=== PATIENT | male | born 1990 | race Caucasian/White ===

== ENCOUNTER 2018-06-05 21:41 | Emergency (ER) | payer SELFPAY ==
[~2018-06-05] VITALS: Ht 172.7 cm; Wt 79.4 kg
[2018-06-05 21:50] VITALS: BP_SYST 139
[2018-06-05] MEDS ORDERED: KETOROLAC TROMETHAMINE 60 MG/2 ML VIAL IM ONE (22:45)
[2018-06-05 23:11] VITALS: BP_SYST 128
== END 2018-06-05 23:11 | disposition home or self-care (01) ==
LOC: SED 21:41
DX: S60.212A Contusion of left wrist, initial encounter (principal); S60.211A Contusion of right wrist, initial encounter; F17.210 Nicotine dependence, cigarettes, uncomplicated; V89.9XXA Person injured in unspecified vehicle accident, initial encounter; Y93.55 Activity, bike riding; Y92.410 Unspecified street and highway as the place of occurrence of the external cause; Y99.8 Other external cause status
CPT/HCPCS: 96372; 99283; J1885

== ENCOUNTER 2018-12-05 20:58 | Emergency (ER) | payer MEDICAID ==
[~2018-12-05] VITALS: Ht 172.7 cm; Wt 81.6 kg
[2018-12-05 21:08] VITALS: BP_SYST 140
--- NOTE | 2018-12-05 21:14 | NUR ---
Patient triaged and placed in waiting room. VSS and patient appears in no acute distress at this time. Accompanied by self, awaiting available bed, and MD notified of need for MSE.
--- NOTE | 2018-12-06 00:25 | NUR ---
Patient to ER Chair 1 for evaluation.
--- NOTE | 2018-12-06 00:30 | NUR ---
Patient to ER via triage for evaluation of left 5th finger x 1 week, patient also reports drainage from finger. Patient is awake, alert and oriented in no acute distress, vital signs stable, respirations even and unlabored, skin warm and dry to touch. Awaiting evaluation by ER MD, will continue to observe and assess.
--- NOTE | 2018-12-06 01:50 | NUR ---
ER at bedside examining patient.
[2018-12-06] MEDS ORDERED: KETOROLAC TROMETHAMINE 60 MG/2 ML VIAL IM ONE (02:00)
[2018-12-06] MEDS ORDERED: cefTRIAXone 1 GM VIAL IM ONE (02:00)
[2018-12-06 02:27] LABS: HEMATOCRIT 42.9 % (36-54); HEMOGLOBIN 14.9 g/dL (14.0-18.0); MEAN CORPUSCULAR HEMOGLOBIN 32 pg (27-31); MEAN CORPUSCULAR HGB CONC 35 % (32-36); MEAN CORPUSCULAR VOLUME 92 fL (79.0-98.0); PLATELET COUNT (AUTO) 360 K/uL (130-430); RED BLOOD CELL COUNT(AUTO) 4.67 MIL/uL (4.2-6.2); RED CELL DISTRIBUTION WIDTH 13.2 % (9.0-15.0); WHITE BLOOD COUNT (AUTO) 10.5 K/uL (4.8-10.8)
[2018-12-06 02:28] LABS: BASOPHILS # (AUTO) 0.1 K/uL (0.0-0.2); BASOPHILS % (AUTO) 0.7 % (0.0-2.0); EOSINOPHILS # (AUTO) 0.3 K/uL (0.0-0.4); EOSINOPHILS % (AUTO) 2.5 % (0.0-4.0); LYMPHOCYTES # (AUTO) 3.7 K/uL (1.0-5.5); LYMPHOCYTES % (AUTO) 34.8 % (20.5-51.5); MONOCYTES % (AUTO) 9.1 % (1.7-9.3); NEUTROPHILS # (AUTO) 5.6 K/uL (1.8-7.7); NEUTROPHILS % (AUTO) 52.9 % (40.0-70.0)
[2018-12-06 02:35] LABS: CALCIUM 8.5 mg/dL (8.4-11.0); CREATININE 0.72 mg/dL (0.55-1.30); POTASSIUM 3.5 mmol/L (3.5-5.1)
[2018-12-06 02:39] LABS: ALBUMIN 3.5 g/dL (3.4-4.8); C-REACTIVE PROTEIN QUANT 1.4 mg/dL (0-0.5); TOTAL BILIRUBIN 0.2 mg/dL (0.0-1.0)
--- NOTE | 2018-12-06 02:50 | NUR ---
Patient resting quietly in no acute distress, patient sleeping at this time. Awakens easily to verbal stimuli. Awaiting results and dispo.
[2018-12-06 03:40] VITALS: BP_SYST 140
--- NOTE | 2018-12-06 03:40 | NUR ---
Patient given written and verbal discharge instructions and verbalizes understanding. ER MD Dr. Shaikh discussed with patient the results and treatment provided. Patient in stable condition. ID arm band removed. Rx of Keflex and ibuprofen given. Patient educated on pain management and to follow up with PMD within 2-3 days. Pain Scale 2/10, however, pt able to walk with steady gait and no acute distress. RX of pain medication. Opportunity for questions provided and answered. Medication side effect fact sheet provided.
[2018-12-06 04:16] LABS: ERYTHROCYTE SEDIMENTATION RATE 11 MM/HR (0-15)
== END 2018-12-06 03:40 | disposition home or self-care (01) ==
LOC: SED 20:58
DX: S62.307A Unspecified fracture of fifth metacarpal bone, left hand, initial encounter for closed fracture (principal); R03.0 Elevated blood-pressure reading, without diagnosis of hypertension; L03.114 Cellulitis of left upper limb; W19.XXXA Unspecified fall, initial encounter; Y93.89 Activity, other specified; Y92.89 Other specified places as the place of occurrence of the external cause; Y99.8 Other external cause status
CPT/HCPCS: 36415; 73130; 80053; 85025; 85651; 86140; 96372; 99284; J0696; J1885

== ENCOUNTER 2019-01-06 11:34 | Emergency (ER) | payer MEDICAID ==
[~2019-01-06] VITALS: Ht 175.3 cm; Wt 90.7 kg
--- NOTE | 2019-01-06 11:34 | NUR ---
Placed in room 06 . Placed on environmental monitoring specialist, blood pressure machine and pulse oximeter. To gown for exam. Side rails up.
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
[2019-01-06 11:36] VITALS: BP_SYST 155
[2019-01-06] MEDS ORDERED: NACL 0.9% 1,000 ML IV ONE (11:40)
--- NOTE | 2019-01-06 11:41 | NUR ---
ER Dr. Apple at bedside examining patient.
[2019-01-06] MEDS ORDERED: BACITRACIN 1 GM OINT TP ONE (11:45)
[2019-01-06] MEDS ORDERED: DIPH-TET-PERTUS Vaccine 0.5 ML VIAL (ADACEL) IM ONE (11:45)
[2019-01-06] MEDS ORDERED: KETOROLAC TROMETHAMINE 30 MG VIAL IVP ONE (11:45)
[2019-01-06] MEDS ORDERED: LIDOCAINE 1% 10 MG/ML, 20 ML MDV IJ ONE (11:45)
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
--- NOTE | 2019-01-06 12:06 | NUR ---
Pt taken to radiology via gurney in stable condition.
[2019-01-06 12:14] LABS: BASOPHILS # (AUTO) 0.1 K/uL (0.0-0.2); BASOPHILS % (AUTO) 0.7 % (0.0-2.0); EOSINOPHILS # (AUTO) 0.2 K/uL (0.0-0.4); EOSINOPHILS % (AUTO) 2.1 % (0.0-4.0); HEMATOCRIT 45.8 % (36-54); HEMOGLOBIN 15.5 g/dL (14.0-18.0); LYMPHOCYTES # (AUTO) 3.1 K/uL (1.0-5.5); LYMPHOCYTES % (AUTO) 39.7 % (20.5-51.5); MEAN CORPUSCULAR HEMOGLOBIN 31 pg (27-31); MEAN CORPUSCULAR HGB CONC 34 % (32-36); MEAN CORPUSCULAR VOLUME 93 fL (79.0-98.0); MONOCYTES # (AUTO) 0.8 K/uL (0.0-1.0); MONOCYTES % (AUTO) 10.3 % (1.7-9.3); NEUTROPHILS # (AUTO) 3.6 K/uL (1.8-7.7); NEUTROPHILS % (AUTO) 47.2 % (40.0-70.0); PLATELET COUNT (AUTO) 300 K/uL (130-430); RED BLOOD CELL COUNT(AUTO) 4.94 MIL/uL (4.2-6.2); RED CELL DISTRIBUTION WIDTH 13.7 % (9.0-15.0); WHITE BLOOD COUNT (AUTO) 7.7 K/uL (4.8-10.8)
[2019-01-06 12:23] LABS: ANION GAP 9 (5-15); CALCIUM 8.8 mg/dL (8.4-11.0); CHLORIDE 102 mmol/L (98-107); CREATININE 0.86 mg/dL (0.55-1.30); GLUCOSE 108 mg/dL (70-99); POTASSIUM 3.9 mmol/L (3.5-5.1); SODIUM SERUM 138 mmol/L (136-145); UREA NITROGEN, BLOOD 12 mg/dL (8-21)
[2019-01-06 12:24] LABS: GFR AFRICAN AMERICAN 134 mL/min (>90)
[2019-01-06 12:29] LABS: ALANINE AMINOTRANSFERASE 23 U/L (12-78); ALBUMIN 3.9 g/dL (3.4-4.8); AMYLASE 25 U/L (0-100); ASPARTATE AMINOTRANSFERASE 11 U/L (10-37); LIPASE 115 U/L (73-393); TOTAL BILIRUBIN 0.3 mg/dL (0.0-1.0)
[2019-01-06 12:33] LABS: ALCOHOL, BLOOD < 3 mg/dL (<10)
--- NOTE | 2019-01-06 13:00 | NUR ---
Medicated per MD orders. IVF infusing with no s/s of infiltration at this time. Will cont to monitor
[2019-01-06 13:24] LABS: BILIRUBIN,URINE NEGATIVE (NEGATIVE); CLARITY/URINE HAZY (CLEAR); COLOR,URINE YELLOW (YELLOW); GLUCOSE,URINE NEGATIVE (NEGATIVE); KETONES,URINE NEGATIVE (NEGATIVE); LEUKOCYTE ESTERASE ,URINE TRACE (NEGATIVE); NITRITE, URINE NEGATIVE (NEGATIVE); PH,URINE 7.5 (5.0-8.0); PROTEIN URINE 1+ (NEGATIVE)
[2019-01-06 13:27] LABS: BLOOD, URINE TRACE (NEGATIVE)
[2019-01-06 13:34] LABS: BARBITURATE, URINE NEGATIVE (NEG <=200); BENZODIAZEPINE, URINE NEGATIVE (NEG <=150); CANNABINOID, URINE NEGATIVE (NEG <=50); COCAINE, URINE NEGATIVE (NEG <=150); METHAMPHETAMINES SCREEN,URINE NEGATIVE (NEG <=500); OPIATE, URINE NEGATIVE (NEG <=100); PHENCYCLIDINE SCREEN,URINE NEGATIVE (NEG <=25); UR TRICYCLIC ANTIDEPRESSANTS NEGATIVE (NEG <=300); URINE AMPHETAMINE POSITIVE (NEG <=500); URINE METHADONE NEGATIVE (NEG <=200); URINE OXYCODONE SCREEN NEGATIVE (NEG <=100); URINE PROPOXYPHENE SCREEN NEGATIVE (NEG <=300)
[2019-01-06 13:45] LABS: BACTERIA,URINE RARE /HPF (None Seen); URINE AMORPHOUS PHOSPHATES 3+ /HPF (None Seen)
--- NOTE | 2019-01-06 13:45 | NUR ---
Interviewed patient regarding homeless status, patient denies being homless, stating that he has temporary housing with his uncle. Offered food, clothing, referral to a homeless [facility] all of which he refused.
[2019-01-06 13:47] VITALS: BP_SYST 138
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
== END 2019-01-06 13:45 | disposition home or self-care (01) ==
LOC: SED 11:34
DX: S01.01XA Laceration without foreign body of scalp, initial encounter (principal); S16.1XXA Strain of muscle, fascia and tendon at neck level, initial encounter; S90.31XA Contusion of right foot, initial encounter; R03.0 Elevated blood-pressure reading, without diagnosis of hypertension; Z88.0 Allergy status to penicillin; V43.52XA Car driver injured in collision with other type car in traffic accident, initial encounter; Y93.89 Activity, other specified; Y92.410 Unspecified street and highway as the place of occurrence of the external cause; Y99.8 Other external cause status
CPT/HCPCS: 12002; 36415; 70450; 72125; 73630; 80053; 80307; 81000; 82150; 83690; 85025; 87086; 90715; 96374; 99284; G0482; J1885; J2001; J7030

== ENCOUNTER 2021-05-14 10:00 | Emergency (ER) | payer MEDICAID ==
[~2021-05-14] VITALS: Ht 172.7 cm; Wt 90.7 kg
[2021-05-14 10:13] VITALS: BP_SYST 143
--- NOTE | 2021-05-14 10:20 | NUR ---
Patient to H1 to gown for evaluation. Side rails up.
[2021-05-14] MEDS ORDERED: KETOROLAC TROMETHAMINE 30 MG VIAL IVP ONE (10:30)
[2021-05-14] MEDS ORDERED: NACL 0.9% 1,000 ML IV ONE (10:30)
--- NOTE | 2021-05-14 10:37 | NUR ---
PT ARRIVES FROM HOME W/ /CO L SIDED FLANK PAIN SINCE THIS AM. REPORTS 06/27, SHARP PAIN, CONSTANT
--- NOTE | 2021-05-14 10:38 | NUR ---
# 20 gauge angiocath placed to lac. Use of asceptic technique. Opsite placed over site. Blood return noted. Blood for lab drawn from site. Flushed with 10 cc of normal saline. No evidence of infiltration noted. Patient tolerated well.
--- NOTE | 2021-05-14 10:40 | NUR ---
MEDICATED W/ TORADOL PER MD ORDER
[2021-05-14 10:52] LABS: BASOPHILS # (AUTO) 0.1 K/uL (0.0-0.2); BASOPHILS % (AUTO) 0.5 % (0.0-2.0); EOSINOPHILS # (AUTO) 0.1 K/uL (0.0-0.4); EOSINOPHILS % (AUTO) 1.1 % (0.0-4.0); HEMATOCRIT 45.6 % (36-54); HEMOGLOBIN 15.9 g/dL (14.0-18.0); LYMPHOCYTES # (AUTO) 3.2 K/uL (1.0-5.5); LYMPHOCYTES % (AUTO) 25.7 % (20.5-51.5); MEAN CORPUSCULAR HEMOGLOBIN 32 pg (27-31); MEAN CORPUSCULAR HGB CONC 35 % (32-36); MEAN CORPUSCULAR VOLUME 93 fL (79.0-98.0); MONOCYTES % (AUTO) 8.5 % (1.7-9.3); NEUTROPHILS # (AUTO) 7.9 K/uL (1.8-7.7); NEUTROPHILS % (AUTO) 64.2 % (40.0-70.0); PLATELET COUNT (AUTO) 295 K/uL (130-430); RED BLOOD CELL COUNT(AUTO) 4.93 MIL/uL (4.2-6.2); RED CELL DISTRIBUTION WIDTH 13.3 % (9.0-15.0); WHITE BLOOD COUNT (AUTO) 12.4 K/uL (4.8-10.8)
[2021-05-14 11:04] LABS: CALCIUM 8.8 mg/dL (8.4-11.0); CREATININE 1.01 mg/dL (0.55-1.30); POTASSIUM 3.4 mmol/L (3.5-5.1)
[2021-05-14 11:10] LABS: ALBUMIN 4.1 g/dL (3.4-4.8); TOTAL BILIRUBIN 0.8 mg/dL (0.0-1.0)
[2021-05-14] MEDS ORDERED: HYDR-3917 PO (11:28)
[2021-05-14] MEDS ORDERED: TAMS-11 PO (11:28)
[2021-05-14] MEDS ORDERED: IBUP-1969 PO (11:28)
[2021-05-14 11:49] VITALS: BP_SYST 143
--- NOTE | 2021-05-14 11:51 | NUR ---
Patient given written and verbal discharge instructions and verbalizes understanding. ER MD discussed with patient the results and treatment provided. Patient in stable condition. ID arm band removed. IV catheter removed intact and dressing applied, no active bleeding. Rx of norco, ibuprofen, and flomax given. Patient educated on pain management and to follow up with PMD. Pain Scale 3/10. Opportunity for questions provided and answered. Medication side effect fact sheet provided.
== END 2021-05-14 11:49 | disposition home or self-care (01) ==
LOC: SED 10:00
DX: N23 Unspecified renal colic (principal); Z88.0 Allergy status to penicillin
CPT/HCPCS: 36415; 74176; 76376; 80053; 81002; 85025; 96361; 96374; 99284; J1885; J7030

== ENCOUNTER 2022-10-22 02:39 | Emergency (ER) | payer MEDICAID ==
[~2022-10-22] VITALS: Ht 172.7 cm; Wt 88.5 kg
[~2022-10-22 02:39] MED LIST: HYDR-3917 PO; IBUP-1969 PO; TAMS-11 PO
[2022-10-22 02:55] VITALS: BP_SYST 122
[2022-10-22] MEDS ORDERED: ONDANSETRON 4 MG ODT TAB PO ONE (03:30)
[2022-10-22] MEDS ORDERED: KETOROLAC TROMETHAMINE 15 MG VIAL IM ONE (03:30)
[2022-10-22 03:55] VITALS: BP_SYST 115
[2022-10-22 04:08] LABS: BASOPHILS # (AUTO) 0.1 K/uL (0.0-0.2); BASOPHILS % (AUTO) 0.6 % (0.0-2.0); EOSINOPHILS # (AUTO) 0.2 K/uL (0.0-0.4); EOSINOPHILS % (AUTO) 1.4 % (0.0-4.0); HEMATOCRIT 43.4 % (36-54); HEMOGLOBIN 15.3 g/dL (14.0-18.0); LYMPHOCYTES # (AUTO) 3.9 K/uL (1.0-5.5); LYMPHOCYTES % (AUTO) 33.5 % (20.5-51.5); MEAN CORPUSCULAR HEMOGLOBIN 32 pg (27-31); MEAN CORPUSCULAR HGB CONC 35 % (32-36); MEAN CORPUSCULAR VOLUME 90 fL (79.0-98.0); MONOCYTES # (AUTO) 1.1 K/uL (0.0-1.0); MONOCYTES % (AUTO) 9.6 % (1.7-9.3); NEUTROPHILS # (AUTO) 6.3 K/uL (1.8-7.7); NEUTROPHILS % (AUTO) 54.9 % (40.0-70.0); PLATELET COUNT (AUTO) 262 K/uL (130-430); RED BLOOD CELL COUNT(AUTO) 4.84 MIL/uL (4.2-6.2); RED CELL DISTRIBUTION WIDTH 13.3 % (9.0-15.0); WHITE BLOOD COUNT (AUTO) 11.5 K/uL (4.8-10.8)
[2022-10-22 04:18] LABS: CALCIUM 8.6 mg/dL (8.4-11.0); CREATININE 0.95 mg/dL (0.55-1.30)
[2022-10-22 04:23] LABS: ALBUMIN 3.8 g/dL (3.4-4.8); TOTAL BILIRUBIN 0.6 mg/dL (0.0-1.0)
== END 2022-10-22 04:51 | disposition home or self-care (01) ==
LOC: SED 02:39
DX: R10.9 Unspecified abdominal pain (principal); R11.0 Nausea; Z88.0 Allergy status to penicillin; Z91.018 Allergy to other foods; Z79.899 Other long term (current) drug therapy
CPT/HCPCS: 99285; 74176; 80053; 83690; 85025; 36415; 76376; 96372; Q0162; J1885

== ENCOUNTER 2024-04-18 13:25 | Emergency (ER) | payer MEDICAID ==
[~2024-04-18] VITALS: Ht 172.7 cm; Wt 86.2 kg
[~2024-04-18 13:25] MED LIST changes: +CEPH-548 PO
[2024-04-18 14:20] VITALS: BP_SYST 132; PULSE 105; RESP 18; TEMP 98.3; O2SAT 99
[2024-04-18] MEDS ORDERED: DOXY100C5 PO (17:16)
[2024-04-18 17:34] VITALS: BP_SYST 132; PULSE 105; RESP 18; TEMP 98.3; O2SAT 99
== END 2024-04-18 17:35 | disposition home or self-care (01) ==
LOC: SED 13:25
DX: L73.8 Other specified follicular disorders (principal); Z87.442 Personal history of urinary calculi; Z88.0 Allergy status to penicillin; Z91.018 Allergy to other foods; Z79.899 Other long term (current) drug therapy; Z79.2 Long term (current) use of antibiotics
CPT/HCPCS: 99283